=== PATIENT | female | born 1930 | race Caucasian/White ===

== ENCOUNTER 2016-10-22 08:07 | Inpatient (IN) ==
[2016-10-22] MEDS ORDERED: NS 1,000 ML IV ONE (08:44)
[2016-10-22] MEDS ORDERED: ZOFRAN ODT PO ONE (08:44)
[2016-10-22 09:02] LABS: MANUAL DIFF NEEDED? NO
[2016-10-22 09:09] LABS: BASO% 0.4 % (0.0-0.8); EOS# 0.06 X1000 (0.0-0.7); EOS% 0.8 % (0.0-10.0); HEMOGLOBIN 13.7 g/dL (12.0-16.0); LYMPH# 1.47 X1000 (1.2-3.4); LYMPH% 18.4 % (20.5-51.1); MCH 30.4 PG (27-31); MCHC 34.3 g/dL (33-37); MCV 88.7 FL (81-99); MONO# 0.69 X1000 (0.11-0.59); MONO% 8.6 % (1.7-9.3); MPV 12.8 FL (7.4-10.4); NEUT% 71.8 % (42.2-75.2); PLT 174 X1000 (130-400); RBC 4.51 XMIL (4.2-5.4)
[2016-10-22 09:15] LABS: INR 1.08; PROTIME 11.4 Seconds (9.2-11.7); PTT 27.7 Seconds (22.0-36.0)
[2016-10-22 09:25] LABS: AGAP 16; ALBUMIN 3.8 g/dL (3.5-5.0); ALKALINE PHOSPHATASE 126 U/L (32-104); AMYLASE 45 U/L (20-200); BUN 15 mg/dL (8-22); CALCIUM 10.3 mg/dL (8.8-10.2); CHLORIDE 102 mmol/L (98-107); CK PROFILE 51 U/L (24-173); COSMO 277; GOT 28 U/L (10-30); GPT 28 U/L (10-36); LIPASE 43 U/L (13-60); MAGNESIUM 1.8 mg/dL (1.5-2.7); POTASSIUM 4.1 mmol/L (3.5-5.1); SODIUM 136 mmol/L (136-145); TCO2 18 mmol/L (25-35); TOTAL BILIRUBIN 2.13 mg/dL (0.20-1.00); TOTAL PROTEIN 6.6 g/dL (6.3-8.3)
[2016-10-22 09:54] LABS: URINE MICRO REVIEW NEEDED? NO; URINE SOURCE CLEAN CATCH
[2016-10-22 09:58] LABS: BILIRUBIN URINE NEGATIVE (NEGATIVE); BLOOD URINE NEGATIVE (NEGATIVE); COLOR YELLOW; GLUCOSE URINE NEGATIVE (NEGATIVE); LEUKOCYTES URINE SMALL (NEGATIVE); NITRITE URINE NEGATIVE (NEGATIVE); PH URINE 5.5; PROTEIN URINE NEGATIVE (NEGATIVE); SP GRAVITY URINE 1.004; TURBIDITY URINE CLEAR (CLEAR); UROBILINOGEN URINE NORMAL (NORMAL)
[2016-10-22 09:59] LABS: UR EPITHELIAL CELLS <10 /HPF (<10); URINE BACTERIA NEGATIVE /HPF; URINE CULTURE NEEDED? YES; URINE RBC <10 /HPF (<10); URINE WBC <10 /HPF (<10)
--- NOTE | 2016-10-22 10:26 | PROVIDER DOCUMENTATION ---
This chart was entered by Brittney Last Scribe, acting as scribe for Mac Frias MD. HPI-General Adult - General Chief Complaint: Weakness Stated Complaint: WEAKNESS/COUGH/VOMITING Time Seen by Provider: 10/22/16 08:24 Source: patient Allergies/Adverse Reactions: Patient Allergies Allergy/AdvReac Type Severity Reaction Status Date / Time No Known Allergies Allergy Verified 10/22/16 09:15 Home Medications: Home Medication List Medication Instructions Recorded Confirmed Last Taken Type Multivit-Min/FA/Lycopene/Lut 1 each PO DAILY 06/30/13 10/22/16 10/22/16 08:00 History [Centrum Silver Tablet] ATORVAstatin [Lipitor] 40 mg PO DAILY 10/22/16 10/22/16 10/22/16 08:00 History Apixaban [Eliquis] 5 mg PO BID 10/22/16 10/22/16 10/22/16 08:00 History BENAZEpril [Lotensin] 20 mg PO DAILY 10/22/16 10/22/16 10/22/16 08:00 History Carvedilol [Coreg] 6.25 mg PO BID 10/22/16 10/22/16 10/22/16 08:00 History Dexlansoprazole [Dexilant] 60 mg PO DAILY 10/22/16 10/22/16 10/22/16 08:00 History Iron,Carbonyl/Vit C/Vit B12/FA [Fe 1 tab PO DAILY 10/22/16 10/22/16 10/22/16 08: 00 History C Plus Tablet] Tramadol HCl 50 mg PO PRN PRN 10/22/16 10/22/16 10/22/16 08:00 History - History of Present Illness -Gen Adult Nature of Presenting Problems: 86 yo F presents to the ER with complaint of n/v/d and weakness x1 week. Pt states x2 weeks ago she saw Dr. Tovar and he discontinued her norvasc and started her on Coureg and Eloquis. Pt states the new medication is causing her to vomit. Denies any CP or SOB associated. Onset/Duration: reports: 1 week ago Associated Symptoms: reports: diarrhea, nausea, vomiting, weakness. denies: chest pain, shortness of breath Review of Systems - Adult - REVIEW OF SYSTEMS - ADULT Constitutional: denies: chills, fever Eyes: reports: no symptoms reported Ears, Nose, Mouth & Throat: reports: no symptoms reported Cardiovascular: denies: chest pain, palpitations Respiratory: denies: cough, shortness of breath Gastrointestinal: reports: diarrhea, nausea, vomiting. denies: abdominal pain Genitourinary: reports: no symptoms reported Musculoskeletal: reports: no symptoms reported Integumentary: reports: no symptoms reported Neurological: reports: no symptoms reported Psychiatric: reports: no symptoms reported Endocrine: reports: no symptoms reported Hematologic/Lymphatic: reports: no symptoms reported Allergic/Immunologic: reports: no symptoms reported All Other Systems: Reviewed and Negative Past History - Adult - PAST MEDICAL HISTORY-ADULT Review of Records: reports: Nursing Assessment Review, Medications Reviewed Cardiovascular: reports: HTN, hyperlipidemia Gastrointestinal: reports: GERD Other Conditions: reports: cataract/glaucoma - PRIOR SURGERIES/PROCEDURES Surgical/Procedure History: reports: cardiac stent, hysterectomy - IMMUNIZATION STATUS Childhood Immunizations: See Nurse Assessment Flu Vaccine: See Nurse Assessment Physical Exam-General - PHYSICAL EXAM-ADULT Initial Vital Signs Reviewed: Yes - CONSTITUTIONAL General Appearance: alert, no apparent distress - EYES Eyes: PERRL/EOMI, pink conjunctivae - HEAD, EARS, NOSE, MOUTH & THROAT HENMT: normocephalic/atraumatic, normal ENT inspection - NECK Neck: supple, normal inspection - RESPIRATORY Respiratory: no respiratory distress, no accessory muscle use - CARDIOVASCULAR Cardiovascular: normal peripheral pulses, regular rate, rhythm, no edema - GASTROINTESTINAL (ABDOMEN) Abdominal Exam: normal bowel sounds, soft, tenderness (mild, epigastric) - MUSCULOSKELETAL Back Exam: no CVA tenderness, no vertebral tenderness Extremity: normal range of motion, non-tender, normal gait, normal inspection - SKIN Integumentary: normal color, warm/dry - NEUROLOGIC Neurologic: grossly normal, no motor/sensory deficits - PSYCHIATRIC Psych/Mental Status: normal mood/affect, normal thought content, normal thought process, oriented x 3 Progress - PLAN OF CARE/RESULTS Progress/Plan/Lab Results: Vital Signs - 8 hr 10/22/16 08:16 Temperature 97.6 F Pulse Rate 70 Respiratory Rate 20 Blood Pressure 178/62 O2 Sat by Pulse Oximetry 98 Orders Category Date Time Status Cardiac Monitoring DIRECTED Care 10/22/16 08:44 Active Saline Loc NOW Care 10/22/16 08:44 Active FLAT/UPRIGHT ABD/1 VIEW CHEST [RAD] Stat Exams 10/22/16 08:44 Ordered AMYLASE [CHEM] Stat Lab 10/22/16 08:51 Ordered CBC WITH ELECTRONIC DIFF [HEME] Stat Lab 10/22/16 08:51 Ordered CK PROFILE [SP CHEM] Stat Lab 10/22/16 08:51 Ordered COMPREHENSIVE METABOLIC PANEL [CHEM] Stat Lab 10/22/16 08:51 Ordered LIPASE [CHEM] Stat Lab 10/22/16 08:51 Ordered MAGNESIUM [CHEM] Stat Lab 10/22/16 08:51 Ordered PRO B-NATRIURETIC PEPTIDE Stat Lab 10/22/16 08:51 Ordered PROTIME WITH INR [COAG] Stat Lab 10/22/16 08:51 Ordered PTT [COAG] Stat Lab 10/22/16 08:51 Ordered TROPONIN T Stat Lab 10/22/16 08:51 Ordered UA NIMS W/REFLEX CULT [URINALYSIS] Stat Lab 10/22/16 08:44 Uncollected 0.9% Sodium Chloride Inj [Ns] 1,000 ml Med 10/22/16 08:44 Active IV 500 mls/hr Ondansetron Odt [Zofran Odt] Med 10/22/16 08:44 Discontinued 4 mg PO NOW ONE EKG [EKG] Stat Ther 10/22/16 08:19 Ordered Result Diagrams: 10/22/16 08:43 10/22/16 08:43 - REASSESSMENT Reassessment #1 Time Reassessed: 10:24 Status: other (Reports Dr. Worthington changed her Norvasc to Coreg and started Eliqus X 2 weeks ago. N/V/generalized weakness started after taking the medications. Pt has a pacer.) - EKG 1 Time of EKG reading by physician:: 08:16 EKG Read and Signed by:: Mac Frias EKG Interpretation (*Must complete 3 of following elements*): Abnormal Rate: 70 Rhythm: wide QRS rhythm [place]: left QRS: LBB [place] Interval: normal ST Wave: normal Prior EKG Comparison: changes noted (pacer) - CONSULTS/PCP/HOSPITALIST Notification #1 *Consult/PCP/Hospitalist*: Chinmay/Dc Time Discussed: 10:26 Consult Disposition: Will see in ED, Admit Departure - Departure Date of Disposition Decision: 10/22/16 Time of Disposition Decision: 10:25 DIAGNOSIS: CHF (congestive heart failure), N&V (nausea and vomiting) Disposition: ADMITTED INPATIENT 09 Certified Medical Emergency: Emergent Condition: Stable Referrals and Follow-Ups: Yanni Albrecht MD [Primary Care Provider] - - Critical Care Note This patient required my direct & personal management of CC.: No This chart was documented by the indicated scribe, (Brittney Last Scribe) and accurately reflects the services I performed and decisions made by me, Mac Frias MD, as attested by the provider's signature.
--- NOTE | 2016-10-22 10:38 | Diag Imaging Result Doc PS360 ---
EXAM: FLAT/UPRIGHT ABD/1 VIEW CHEST HISTORY: Abd pain TECHNIQUE: Three views COMPARISON: 06/30/2013 FINDINGS: The patient now has a left-sided pacemaker. There are increased interstitial markings in the lungs which may be fibrosis, but could represent pulmonary edema. The heart is mildly prominent. No free air beneath the diaphragm. No bowel obstruction. No organomegaly. Prominent degenerative changes in the lumbar spine. IMPRESSION: No acute abdominal abnormality. The patient has fibrosis or pulmonary edema. Electronically signed by Keven Wells 10/22/2016 10:36 AM
[2016-10-22] MEDS ORDERED: LASIX IV ONE (12:06)
[2016-10-22] MEDS ORDERED: G.I. COCKTAIL PO ONE (12:09)
--- NOTE | 2016-10-22 13:46 | Diag Imaging Result Doc PS360 ---
EXAM: CT THORAX W/O CONTRAST HISTORY: pulm fibrosis vs edema TECHNIQUE: Dose reduction protocol COMPARISON: 09/03/2012 FINDINGS: There are moderate-sized bilateral pleural effusions measuring just over 4 cm posteriorly and inferiorly in the midline. The heart is enlarged. The patient has a left-sided pacemaker. There are increased interstitial markings as well as basilar atelectasis. No consolidation. IMPRESSION: 1.Increased interstitial markings appear more similar to pulmonary edema rather than fibrosis 2.Cardiomegaly with pleural effusions and likely pulmonary edema consistent with congestive failure 3.Basilar atelectasis Electronically signed by Keven Wells 10/22/2016 1:44 PM
--- NOTE | 2016-10-22 16:20 | Diag Imaging Result Doc PS360 ---
EXAM: US GB < RUQ (LIMITED) HISTORY: abd pain, vomiting, elevated tbili TECHNIQUE: COMPARISON: None. FINDINGS: Normal pancreas, aorta, and inferior vena cava. No focal hepatic abnormality. Normal right kidney. No hydronephrosis. Normal gallbladder. No stones. No ascites. The common bile duct measures 5 mm. IMPRESSION: Normal right upper quadrant ultrasound Electronically signed by Keven Wells 10/22/2016 4:18 PM
--- NOTE | 2016-10-22 18:00 | HISTORY AND PHYSICAL ---
PCP: Dr. Albrecht. LACQUER PIN PRESS OPERATOR: Dr. Tovar. CHIEF COMPLAINT: Shortness of breath, weakness and nausea. HISTORY OF PRESENT ILLNESS: Mrs. Giraldo is a very pleasant 86-year-old female with a fairly complex history, she has coronary disease status post stenting, bradycardia status post pacemaker and AAA status post aortic stenting who comes to the ER today with overall malaise some shortness of breath and wheezing and some epigastric pain and nausea, vomiting. She reports symptoms began after seeing Dr. Tovar earlier this week and switching from Norvasc to metoprolol and stopping aspirin and starting Eliquis. Since that time she has had some epigastric discomfort and acid reflux type symptoms as well as some shortness of breath and wheezing, she denies any overt chest pain. She is not having any sputum production or fever, she denies lower extremity edema but does report that she gets fairly short of breath and weak just by walking to the mailbox. She has a history of severe aortic stenosis which she has elected to treat medically versus operatively. When she came to the ER today she had abdomen and chest x- ray done. The chest x-ray portion revealed cardiomegaly and pulmonary edema versus fibrosis. Her labs show elevated proBNP of 16,849 and isolated hyperbilirubinemia. We now going to admit her further treatment and evaluation. PAST MEDICAL HISTORY: 1. Paroxysmal atrial fibrillation. 2. Coronary artery disease. 3. Systolic heart failure with EF of 40%. 4. Severe aortic stenosis. 5. Hypertension. 6. GERD. 7. Hyperlipidemia. 8. History of triple AAA status post stenting. SURGICAL HISTORY: She has coronary stenting and aortic artery stenting, she has also had a hysterectomy. SOCIAL HISTORY: Patient is , she lives alone but has strong family support. She has no tobacco, alcohol or drug use. FAMILY HISTORY: Noncontributory. REVIEW OF SYSTEMS: Fourteen-point review of systems obtained found to be negative with the exception of the HPI. ALLERGIES: No known drug allergies. HOME MEDICATIONS: Eliquis 5 mg b.i.d., Lipitor 40 mg daily, Lotensin 20 mg daily, Coreg 6.25 mg p.o. b.i.d., Dexilant 60 mg p.o. daily, iron tablet 1 daily, Centrum Silver 1 daily, tramadol 50 mg as needed. PHYSICAL EXAMINATION: VITAL SIGNS: Blood pressure 151/76, heart rate is 70, respiratory rate 23, O2 saturations 95% on room air, temperature is 97.6 degrees. GENERAL: This is an elderly 86-year-old female lying in hospital bed no acute distress. NEUROLOGIC: The patient is awake, alert. She follows commands without focal deficit. HEENT: Head atraumatic and normocephalic. Her pupils are equal, round, reactive to light. Oral mucosa is moist. Trachea is midline. There is no JVD. CHEST: Crackles throughout. CARDIOVASCULAR: Slightly irregular with a 3/6 systolic ejection murmur noted. GI: Mild epigastric tenderness to palpation. Otherwise belly soft and nondistended, bowel sounds are active. EXTREMITIES: No edema, clubbing or cyanosis. Pulses are diminished but palpable bilaterally. DIAGNOSTIC DATA: A chest and abdomen x-ray no acute abnormality. Patient has fibrosis or pulmonary edema. EKG paced rhythm. WBC 7.99, hemoglobin 13.7, hematocrit 40, platelet count 174,000, INR 1.08. Sodium 136, potassium 4.1, chloride 102, CO2 18 ,anion gap 16, BUN 15, creatinine 0.7, glucose 174, calcium 10.3, magnesium 1.8, bilirubin 2.13, AST 28, ALT 28, alkaline phosphatase 126, troponin negative, pro-B 16,849, lipase is 43. UA is negative. ASSESSMENT AND PLAN: 1. Congestive heart failure: Patient seems to have some pulmonary edema and subjective symptoms of heart failure, she has known and mildly reduced ejection fraction. Will give her some Lasix and continue her beta-mathew and BENEDICTO inhibitor, continue oxygen and nebulizations, will ask Cardiology to assist as well. 2. Epigastric pain, nausea, mild vomiting: Unclear as to the significance. It does sound like she has some acid reflux. Will check a right upper quadrant ultrasound to see if she has any hepatic abnormalities or bile duct dilatation. 3. Severe aortic stenosis: Patient has already told us that she does not wish for any operative interventions. Will continue with her medical treatment and consult Cardiology. 4. History of abdominal aortic aneurysm: Will check an aortic ultrasound to make sure stent is still patent to evaluate overall patency of aorta. 5. Coronary artery disease: We are going to trend her enzymes, continue her home medications and follow telemetry. 6. History of bradycardia status post pacemaker: EKG shows paced rhythm, overall this is stable. 7. Hypertension: Continue her home medications. 8. Paroxysmal atrial fibrillation: Continue all of her home medications including Eliquis. 9. Deep vein thrombosis prophylaxis with Eliquis, further recommendations to follow. Dictated by ISSAC Sabillon for Nacho Maldonado MD cc: MD Nacho Lopez MD I have seen and examined patient. I agree with the above evaluation and plan. darius SANDOVAL
[2016-10-22] MEDS: LASIX IV SCH (18:58)
[2016-10-22] MEDS: ALDACTONE PO SCH (18:58)
[2016-10-22] MEDS ORDERED: COREG PO SCH (21:00)
[2016-10-22] MEDS: ELIQUIS PO SCH (21:53)
[2016-10-22] MEDS: LIPITOR PO SCH (21:53)
[2016-10-22] MEDS: COREG PO SCH (21:59)
[2016-10-22] MEDS: ULTRAM PO PRN (23:35)
[2016-10-23] MEDS: LASIX IV SCH ×2 (05:23→17:50)
[2016-10-23 05:35] LABS: HEMATOCRIT 39.4 % (37.0-47.0); MCH 30.5 PG (27-31); MCV 92.5 FL (81-99); MPV 12.2 FL (7.4-10.4); RBC 4.26 XMIL (4.2-5.4)
[2016-10-23 06:03] LABS: AGAP 12; BUN 16 mg/dL (8-22); CALCIUM 9.7 mg/dL (8.8-10.2); CHLORIDE 103 mmol/L (98-107); COSMO 288; DIGOXIN < 0.2 ng/mL (0.9-2.0); POTASSIUM 3.7 mmol/L (3.5-5.1); SODIUM 143 mmol/L (136-145); TCO2 28 mmol/L (25-35)
--- NOTE | 2016-10-23 09:47 | EKG Report ---
Test Performed on : 10/22/2016 08:16:34 AM Test Reason : ed. canc in error Blood Pressure : / mmHG Vent. Rate : 070 BPM Atrial Rate : 069 BPM P-R Int : 000 ms QRS Dur : 180 ms QT Int : 466 ms P-R-T Axes : 000 -57 113 degrees QTc Int : 503 ms Wide QRS rhythm. Left axis deviation Left bundle branch block Abnormal ECG When compared with ECG of 30-JUN-2013 15:37, Wide QRS rhythm. has replaced Junctional rhythm. Unconfirmed Result
[2016-10-23] MEDS: LOTENSIN PO SCH (09:51)
[2016-10-23] MEDS: ALDACTONE PO SCH (09:51)
[2016-10-23] MEDS: ICAR-C PLUS PO SCH (09:51)
[2016-10-23] MEDS: CENTRUM SILVER PO SCH (09:51)
[2016-10-23] MEDS: ELIQUIS PO SCH ×2 (09:51→20:30)
[2016-10-23] MEDS: COREG PO SCH ×2 (09:51→20:30)
[2016-10-23] MEDS: DEXILANT PO SCH (09:51)
--- NOTE | 2016-10-23 10:38 | CONSULTATION ---
DATE OF CONSULTATION: 10/22/2016 REQUESTING PHYSICIAN: Hospitalist Service PRIMARY TERMITE TECHNICIAN: Dr. Tovar/Dr. Nguyen PRIMARY CARE PHYSICIAN: Dr. Albrecht REASON FOR CONSULTATION: Shortness of breath, congestive heart failure. HISTORY OF PRESENT ILLNESS: Ms. Giraldo presents to the emergency department today with a few day history of increasing exertional dyspnea, dyspnea at rest and some swelling of the lower extremities. The patient says that this had been creeping up on her progressively. She has not felt this way before. In the emergency room department, they did a CT scan of the chest that shows increased interstitial markings suggesting pulmonary edema. There is cardiomegaly with pleural effusions. The study is consistent with congestive heart failure and basilar atelectasis. Blood work shows a ProBNP level of 16,849. Troponin is negative. They have done 2 troponins on her. EKG shows activity of permanent pacemaker. She may be in underlying atrial fibrillation. The patient in fact is taking Eliquis for stroke prevention. PAST MEDICAL HISTORY: Positive for severe coronary heart disease. In 2012, a cardiac catheterization revealed severe stenosis of the right coronary artery. She was sent to [place] for a stent. She was also at that time evaluated because of syncope. She was found to have AV block, and she received a permanent pacemaker. At that time, she demonstrated a moderate to severe aortic stenosis; however, this was left untreated until the other issues were taken care of. The patient has been recently evaluated in [place] for possible TAVR, and the patient declined to have any more procedures done. The patient has hypertension, hyperlipidemia, acid reflux. PAST SURGICAL HISTORY: She has had hysterectomy and pacemaker implantation. In 06/2013, a [facility] [id number] More recent echocardiogram dated 08/02/2016 shows a maximum gradient of 56 mmHg, mean gradient 34 mmHg across the aortic valve which appears to be severely stenosed, mild mitral annular calcification, and ejection fraction is down to 40%. Pulmonary pressure was 45 mmHg at that time. HOME MEDICATIONS: Reportedly include Dexilant 60 mg daily, Lotensin 20 daily, atorvastatin 40 daily, tramadol 50 daily, carvedilol 6.25 twice a day, apixaban 5 mg twice a day and multivitamin. ALLERGIES: Negative. REVIEW OF SYSTEMS: She has become progressively more debilitated. She has become progressively more short of breath with exercise. No other positive in the multiple system review including pulmonary, cardiovascular, gastrointestinal, neurological, psychiatric, dermatological, hearing, visual, hematological, metabolic, etc., etc. PHYSICAL EXAMINATION: Blood pressure is 150/49, temperature 97.6, pulse 69, respirations 20. She is awake, alert and oriented, no distress. Neck veins are slightly prominent. Chest has diminished breath sounds at the bases. No rales are noted. Heart sounds are distant, regular, with a systolic murmur of 2 to 3/6 over the aortic area and radiating to the neck. Abdomen is nontender, soft. No hepatomegaly. Extremities showed trace edema. Pulses are diminished. Neurologic: Follows commands. She is hard of hearing. DIAGNOSTIC DATA: Sodium is 136, potassium 4.1, BUN is 15, creatinine 0.7, bilirubin 2.13. TSH is 4.3. Albumin is normal. Hemoglobin is 13.7, platelet count 174,000. Abdominal ultrasound was done today, and it shows no evidence of any masses or any significant abnormality. CT scan of the chest was done today, and it showed extensive cardiovascular calcifications. She does have significant calcification of the descending thoracic aorta as well as the abdominal aorta. That may preclude her as a candidate for open heart surgery. She also has extensive calcifications in the 3 coronary arteries. IMPRESSION: 1. The patient is presenting with exacerbation of chronic congestive heart failure, both systolic and diastolic. She appears to be in atrial fibrillation which may be contributing to it. She is pacemaker dependent, apparently. 2. Severe aortic stenosis. 3. History of severe coronary heart disease. Previous stent to right coronary artery. RECOMMENDATIONS: At this point in time, we will suggest diuresis with furosemide and spironolactone. We will see how she does over the next couple of days. Consideration may be given at performing a left heart catheterization to check her coronary arteries since she could have developed restenosis of the right coronary artery and perhaps there is a chance that we could improve her function by pursuing PCI of the right coronary artery. Further advice will be forthcoming. Thank you for the opportunity to participate in her evaluation. cc: MD Curt Cherry MD Tracy L. Neal, MD Hiteshri S. Bhavsar, MD
--- NOTE | 2016-10-23 14:12 | PROGRESS NOTE ---
DATE: 10/23/2016 CHIEF COMPLAINT: Shortness of breath. SUBJECTIVE: Ms. Giraldo is feeling better. She is not wheezing anymore. She denies having any chest pain. OBJECTIVE: Blood pressure is 117/45, temperature 98.4, pulse 70, respirations 20. She is awake and alert. Neck veins are not as distended as yesterday. Chest is a little better, clearer to auscultation and percussion. Heart sounds are regular and rhythmic with a systolic murmur of 2 to 3/6 over the aortic area. Abdomen is nontender, soft. Extremities showed trace edema. Neurologic: She moves all 4 extremities and follows commands. DIAGNOSTIC DATA: Blood work today shows sodium 143, potassium 3.7, BUN is 16, creatinine 1.0, glucose is 128. Hemoglobin is 13 g, platelet count is 155,000. IMPRESSION: 1. The patient presented with decompensated congestive heart failure which is systolic and diastolic. This is secondary to a combination of severe aortic stenosis as well as coronary artery disease. She has had previous stent to a diffusely diseased right coronary artery or previous angioplasty to a previously diseased right coronary artery. 2. She has sick sinus syndrome, chronic atrial fibrillation, heart block, status post pacemaker. RECOMMENDATIONS: At this point in time, I would continue present approach with IV Lasix and spironolactone. We will monitor her electrolytes on a daily basis and will see how she responds. Thus far, the patient is reluctant to pursue invasive evaluation; however, I believe that, it is still an open option for her. We will follow her. cc: Scott Mustafa MD [facility]
--- NOTE | 2016-10-23 18:59 | PROGRESS NOTE ---
DATE: 10/23/2016 SUBJECTIVE: Today Ms. Giraldo refers to be doing a lot better. According to her, her shortness of breath and the sensation of air hunger has significantly improved. OBJECTIVE: Vital signs: Blood pressure is 148/51, pulse of 73, respirations 20, temperature 98.7 degrees. General: Ms. Giraldo is an 86-year-old female. She is in bed, not in any remarkable distress. HEENT: Mucosa is pink and moist. Anicteric. Acyanotic. Neck: Supple. There is positive JVD. Chest: Air entry is bilaterally reduced. There are diffuse bilateral crepitations. Cardiovascular: Regular rate and rhythm. There is a systolic murmur about 3/6 over the aortic area radiating to the neck. Abdomen: Soft. Extremities: No pedal edema. FIRE BOSS: Patient is awake and alert and oriented. There is no focal neurological deficit. LABORATORY DATA: WBC is 5.61, hemoglobin is 13.0, platelet count of 155,000. Chemistry is reviewed and unremarkable except for creatinine 1.0. Digoxin level is less than 0.2. A CT scan of the chest which was done on presentation did show increased interstitial markings, appear more similar to pulmonary edema than fibrosis. Cardiomegaly with pleural effusions consistent with congestive heart failure. Abdomen ultrasound shows right upper quadrant ultrasound was unremarkable. EKG shows a paced rhythm. ASSESSMENT: 1. Acute on chronic congestive heart failure. 2. Respiratory distress secondary to pulmonary edema and pleural effusions. 3. History of paroxysmal atrial fibrillation; currently in sinus. 4. Severe aortic stenosis. The patient has declined to do any intervention at this point in time. 5. Status post pacemaker. PLAN: So in general, Ms. Giraldo seems to be progressively getting better. Shortness of breath has improved. Still sounds slightly congested in the lungs so we are going to continue with the IV Lasix and her spironolactone and also her home medications. The patient is being followed up by cardiology and we are pending her echocardiogram today. I think Ms. Giraldo will probably be able to be discharged tomorrow or the day after depending on cardiology's further recommendations. cc: Nacho Maldonado MD
[2016-10-23] MEDS: LIPITOR PO SCH (20:30)
[2016-10-23] MEDS: ULTRAM PO PRN (20:30)
[2016-10-24] MEDS: LASIX IV SCH ×2 (05:06→17:46)
[2016-10-24 07:04] LABS: HEMATOCRIT 40.9 % (37.0-47.0); HEMOGLOBIN 13.4 g/dL (12.0-16.0); MCH 30.3 PG (27-31); MCHC 32.8 g/dL (33-37); MCV 92.5 FL (81-99); MPV 12.1 FL (7.4-10.4); RBC 4.42 XMIL (4.2-5.4)
[2016-10-24 07:42] LABS: CALCIUM 10.1 mg/dL (8.8-10.2); POTASSIUM 4.2 mmol/L (3.5-5.1)
[2016-10-24] MEDS: ELIQUIS PO SCH ×3 (07:51→20:41)
[2016-10-24] MEDS: ICAR-C PLUS PO SCH ×2 (07:51→10:57)
[2016-10-24] MEDS: ALDACTONE PO SCH ×2 (07:51→10:57)
[2016-10-24] MEDS: CENTRUM SILVER PO SCH ×2 (07:51→10:57)
[2016-10-24] MEDS: DEXILANT PO SCH ×2 (07:51→10:57)
[2016-10-24] MEDS: COREG PO SCH ×3 (07:51→20:45)
[2016-10-24] MEDS: LOTENSIN PO SCH ×2 (07:52→10:57)
--- NOTE | 2016-10-24 08:24 | PROGRESS NOTE ---
DATE: 10/24/2016 CHIEF COMPLAINT: Shortness of breath. SUBJECTIVE: Ms. Giraldo is feeling much better. She is diuresing nicely. She has not experienced any chest pain. Telemetry indicates activity of a pacemaker. She has no chest pain. OBJECTIVE: Vital signs: Blood pressure is 145/51. Temperature 97.6. Pulse 70. Respirations 20. General: She is awake, alert, oriented, in no distress. Neck: Prominent neck veins. Chest: Diminished breath sounds at both bases, however, I do not hear any rales today. Cardiac: Heart sounds are regular and rhythmic. She does have a systolic murmur, 2 to 3/ 6, over the aortic area radiating to the neck. Abdomen: Soft and nontender. There is no hepatomegaly. Extremities: Show no evidence of edema today. Pulses are diminished. Neurologic: She is moving four extremities. She is eating breakfast, conversing normal. Speech is clear. Alert and oriented x3. LABORATORY DATA: Today hemoglobin 13.4, platelet count 174,000. Sodium 143, potassium 4.2, BUN 23, creatinine 0.9. IMPRESSION: 1. Patient with congestive heart failure, both systolic and diastolic, secondary to coronary heart disease.chronic with acute decompensation. 2. Coronary heart disease, previous PTCA to the right coronary artery. 3. Aortic stenosis, severe. 4. Chronic atrial fibrillation, sick sinus syndrome, heart block, status post implantation of a permanent pacemaker. 5. Bilateral pleural effusions secondary to the aforementioned congestive heart failure, decompensated. RECOMMENDATIONS: At this point in time, I would suggest to continue present diuresis program with Lasix and spironolactone. I believe the patient is progressing nicely and I would probably keep her in the hospital another couple of days doing a followup chest x-ray just before discharge to make sure that the pleural effusions have resolved. The patient is still considering the possibility of pursuing some intervention at some point. I suspect she is a borderline candidate for TAVR and possibly coronary revascularization. Will follow her along. cc: Scott Mustafa MD [facility]
--- NOTE | 2016-10-24 18:57 | PROGRESS NOTE ---
DATE: 10/24/2016 SUBJECTIVE: Patient reports feeling better. Denies any chest pain or shortness of breath. OBJECTIVE: Vital Signs: Temperature 97.6 degrees, heart rate 70, respiratory 20, blood pressure 127/42, O2 saturation 97% on room air. General Examination: This is an 86-year -old female lying in bed in no acute distress. HEENT: Head is normocephalic, atraumatic. Anicteric sclerae and pale conjunctivae. Mucous membranes moist. Neck: Supple. No JVD noted. No carotid bruits. No lymphadenopathy. No thyromegaly. Cardiovascular: S1, S2 heard. Regular rate and rhythm. There is a systolic murmur 3 to 4/6 over the aortic area radiating to the neck. Respiratory: Diffuse bilateral crepitation, patient is not using any accessory muscles or having work of breathing. Abdomen: Soft, nontender to palpation. Bowel sounds present. No organomegaly. Extremities: No clubbing, cyanosis. Peripheral pulses present in both legs. LABORATORY DATA: Reviewed. ASSESSMENT AND PLAN: 1. Acute on chronic congestive heart failure. This condition is getting better. Evaluated by Cardiology. This patient is doing good. At this point we are going to continue with the same management. I think between tomorrow and the day after will be able to discharge her. 2. Severe aortic stenosis. Patient has declined to do any intervention at this point. She may be a candidate for TAVR procedure but I guess that question can be discussed in the [facility] office. 3. History of paroxysmal atrial fibrillation. Currently she is in sinus rhythm. 4. Respiratory distress secondary to pulmonary edema and pleural effusions. We are going to check tomorrow an x-ray and if there is any significant improvement we may discharge this patient. 6. Status post pacemaker placement. Aware. cc: Anthony Machuca MD [facility]
[2016-10-24] MEDS: LIPITOR PO SCH (20:41)
[2016-10-24] MEDS: ULTRAM PO PRN (20:41)
[2016-10-25] MEDS: LASIX IV SCH (05:16)
[2016-10-25 06:24] LABS: HEMATOCRIT 42.8 % (37.0-47.0); HEMOGLOBIN 14.1 g/dL (12.0-16.0); MCH 30.1 PG (27-31); MCHC 32.9 g/dL (33-37); MCV 91.5 FL (81-99); MPV 12.3 FL (7.4-10.4); RBC 4.68 XMIL (4.2-5.4)
[2016-10-25 06:57] LABS: CALCIUM 10.2 mg/dL (8.8-10.2); POTASSIUM 4.4 mmol/L (3.5-5.1)
[2016-10-25 07:19] VITALS: BP 136/67
--- NOTE | 2016-10-25 08:27 | Diag Imaging Result Doc PS360 ---
EXAM: CHEST-2 VIEWS HISTORY: chf, pleural effusions TECHNIQUE: COMPARISON: 10/22/2016 FINDINGS: The lungs are well expanded. There is a left-sided pacemaker. The heart is mildly enlarged. The vessels are not distended. No pneumonia. No pleural effusions. IMPRESSION: Mild cardiomegaly, but no congestive failure. Electronically signed by Keven Wells 10/25/2016 8:25 AM
[2016-10-25] MEDS: ALDACTONE PO SCH (09:36)
[2016-10-25] MEDS: ICAR-C PLUS PO SCH (09:36)
[2016-10-25] MEDS: DEXILANT PO SCH (09:36)
[2016-10-25] MEDS: COREG PO SCH (09:36)
[2016-10-25] MEDS: CENTRUM SILVER PO SCH (09:36)
[2016-10-25] MEDS: ELIQUIS PO SCH (09:36)
[2016-10-25] MEDS: LOTENSIN PO SCH (09:36)
--- NOTE | 2016-10-26 11:30 | DISCHARGE SUMMARY ---
ADMISSION DATE: 10/22/2016 DISCHARGE DATE: 10/25/2016 CONSULTATIONS: Dr. Mustafa with cardiology. PERTINENT PROCEDURES: 1. Chest CT showed increased interstitial marking appear more similar pulmonary edema rather than fibrosis. Cardiomegaly with pleural effusions, and likely pulmonary edema consistent with congestive heart failure. Bibasilar atelectasis. 2. Abdominal x-ray shows no acute abdominal abnormality. The patient has fibrosis of pulmonary edema. 3. Abdominal ultrasound shows normal right upper quadrant ultrasound. DISCHARGE DIAGNOSES: 1. Acute on chronic congestive heart failure. Evaluated by cardiology. Stable. 2. Severe aortic stenosis. The patient declined any intervention at this point. However, she is a candidate for a TAVR procedure. She will discuss this at a later date at her proposal director's office. 3. Paroxysmal atrial fibrillation. Currently in sinus rhythm. 4. Respiratory distress secondary to pulmonary edema and pleural effusions. Stable. 5. Status post pacemaker placement. Aware. HOSPITAL COURSE: Briefly, Ms. Giraldo is an 83-year-old female who carries a past medical history of coronary artery disease status post stenting, bradycardia status post pacemaker, AAA status post aortic stenting, who comes to the ED with overall malaise, shortness of breath, wheezing, epigastric pain, nausea, vomiting. Reports symptoms began after seeing Dr. Tovar earlier in the week, switching from Norvasc to metoprolol and stopping aspirin and starting Eliquis. Since that time she has had some epigastric discomfort, acid reflux type symptoms, as well as some shortness of breath, wheezing. Denied any overt chest pain. She was not having any sputum production or fever. Denied any lower extremity edema but did report she gets fairly short of breath and weak just by walking to the mailbox. She does have a history of severe aortic stenosis which she elected to medically treat versus operatively. She came to the ED and had an abdomen and chest x- ray done. The chest x-ray portion revealed cardiomegaly and pulmonary edema versus fibrosis. Lab showed elevated proBNP, as well as isolated hyperbilirubinemia. The patient was admitted for congestive heart failure. She was given IV Lasix, continued on her beta mathew and BENEDICTO inhibitor, as well as supplemental O2 and bronchodilators, and a cardiology consult. For her epigastric pain and nausea, they did a right upper quadrant ultrasound that was completely normal. Her cardiac enzymes were trended. She was in both systolic and diastolic heart failure. She was treated with both Lasix and spironolactone for the past couple of days. All complicated by her coronary artery disease as well as her severe aortic stenosis, that she continues to decline any intervention. She has progressively gotten better. Her shortness of breath has improved. Dr. Mustafa did talk to the patient about being a candidate for a TAVR procedure for her aortic stenosis. She did have a repeat chest x-ray on the day of her discharge. It did show mild cardiomegaly but no congestive heart failure. She is appropriate for discharge today. VITAL SIGNS: Temperature is 97.7 degrees, heart rate 70, respirations 18, blood pressure 136/67, O2 is 98% on room air. DISCHARGE DIET: Healthy heart. DISCHARGE MEDICATIONS: As per Dr. Machuca. 1. Eliquis 5 mg p.o. b.i.d. 2. Lipitor 40 mg p.o. daily. 3. Lotensin 20 mg p.o. daily. 4. Coreg 6.25 mg p.o. b.i.d. 5. Dexilant 60 mg p.o. daily. 6. Lasix 40 mg p.o. daily. 7. FEC Plus 1 tablet p.o. daily. 8. Centrum Silver 1 each p.o. daily. 9. Aldactone 25 mg p.o. daily. 10. Tramadol 50 mg p.o. p.r.n. 11. Ambien 5 mg p.o. at bedtime. FOLLOW-UP: The patient is being discharged home with self care. She will follow up with her primary care physician, Dr. Albrecht, as well as her proposal director in 4 weeks where they can further discuss possible TAVR procedure. She can return to the ED for any worsening of symptoms. DISCHARGE TIME: 35 minutes. Dictated by ISSAC Colby for Anthony Machuca MD cc: MD Yanni Kaye MD [facility]
== END 2016-10-25 11:20 | disposition home or self-care (01) ==
LOC: ED 08:07 → SUATTDRO 12:54 → 4N 12:54
PROVIDERS: ATTEND Internal Medicine